=== PATIENT | female | born 1955 | race Caucasian/White ===

== ENCOUNTER 2023-12-20 13:56 | Outpatient (AMB) | payer BC, SELFPAY ==
--- NOTE | 2023-12-20 13:58 | MHC.PC.OV ---
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 Allergies erythromycin base Adverse Reaction (Intermediate, Verified 12/20/23 14:06) stomach pain bacitracin [From Triple Antibiotic] Adverse Reaction (Mild, Verified 12/20/23 14:06) Unknown neomycin [From Triple Antibiotic] Adverse Reaction (Mild, Verified 12/20/23 14:06) Unknown polymyxin B [From Triple Antibiotic] Adverse Reaction (Mild, Verified 12/20/23 14:06) Unknown metals Adverse Reaction (Intermediate, Uncoded 12/20/23 14:06) rash Tobacco use date assessed: 12/20/23 Dental Screening Dental Screen Date: 12/20/23 Did you have a dental visit in the last 12 months?: Yes Did you have a dental problem in the last 6 months where you did not have access to dental care?: No Was dental information given to patient?: Patient has dentist HPI HPI Comments History of Present Illness Details This is a 68-year-old female with a past medical history of mild intermittent asthma, hypertension, GERD, IBS and obesity presenting to transfer from my practice at [facility]. She went to [place] last week for 12 of December. She will be going back again in a few weeks. She does not have any major concerns. She mentions pain in the back of both ankles for a couple of weeks. She was wearing Tevas, and she noticed pain around the strap in the back. She started wearing sneakers again. She thinks it is helping. She does have a pain on the front of her right knee for a couple of days, but there was no trauma, swelling, redness. It is mild. Her knee does not lock or give out. No tick bites, but she spends a lot of time outside. Asthma has been quiet. She uses albuterol as needed. She has IBS and GERD. She takes lansoprazole and dicyclomine is taken as needed. She continues to decline colonoscopy. She denies blood in her stools, stool changes or unexplained weight loss. She denies family history of colon cancer. She does agree to Cologuard today. Patient said she had a mammogram done last year, and she is up-to-date. She declines referral for annual gynecologic exam. She is overdue. Hypertension is treated with amlodipine 7.5 mg daily. Her office reading today is elevated, but but her last home readings have been 120/80-81. ROS: Constitutional: No unexplained weight loss, fever, chills, fatigue or night sweats. Respiratory: No shortness of breath, cough or sputum production. Cardiovascular: No chest pain, chest pressure or chest discomfort. No palpitations or pedal edema. Neurologic: No headache, dizziness, syncope, unilateral weakness, ataxia, numbness or tingling in the extremities. Hematologic/Lymphatics: No bleeding or bruising. Skin: No rash Psychiatric: No depression or anxiety. Physical exam: Constitutional: Alert, in no distress. Eyes: Pupils are equal, round and reactive to light. Extraocular muscles intact. Neck: Supple, Full range of motion. No lymphadenopathy. No palpable thyroid masses. Respiratory: Clear to auscultation. Cardiovascular: S1 S2 regular. No murmurs. Neurologic: No focal neurological deficits. Musculoskeletal: Achilles tendons are nontender, no crepitus, no edema or erythema. Right knee nontender to palpation with full range of motion and normal gait. Extremities: Warm and well perfused. No edema. Psychiatric: Normal mood and affect [facility] Medical History (Updated 12/20/23 @ 15:58 by ZAY Barrera) Obesity (BMI 30.0-34.9) IBS (irritable bowel syndrome) Seasonal allergic rhinitis due to pollen Mild intermittent asthma in adult without complication Essential hypertension GERD without esophagitis Cold-induced asthma Seasonal allergies GERD (gastroesophageal reflux disease) Surgical History (Updated 12/20/23 @ 14:15 by Elidia Lamb CMA) S/P cholecystectomy Family History (Updated 12/20/23 @ 14:17 by Elidia Lamb CMA) Father Cardiovascular disease High blood pressure Stroke Social History Housing: House Patient Tobacco Use Status: Never used Tobacco e-Cigarette/Vaping Use: Never Used service: No Current occupational status: employed Cognitive needs: No Hearing needs: No Vision needs: Yes (Patient wears glasses.) Questionnaire PHQ-9 Over the last 2 weeks, how often have you been bothered by any of the following problems? 1. Little interest or pleasure in doing things: not at all 2. Feeling down, depressed, or hopeless: not at all 3. Trouble falling or staying asleep, or sleeping too much: not at all 4. Feeling tired or having little energy: not at all 5. Poor appetite or overeating: not at all 6. Feeling bad about yourself - or that you are a failure or have let yourself or your family down: not at all 7. Trouble concentrating on things, such as reading the newspaper or watching television: not at all 8. Moving or speaking so slowly that other people could have noticed. Or the opposite - being so fidgety or restless that you have been moving around a lot more than usual: not at all 9. Thoughts that you would be better off or of hurting yourself in some way: not at all Total score: 0 Depression Screening Interpretation: Negative Depression Screening Done: Yes Source: Developed by Drs. Dominik Patten, Emily Baron, Romeo Reddy and colleagues, with an educational kita from [employer]. Thrive Questionnaire Date Thrive assessed: 12/20/23 I am a: Patient What is your living situation today?: I have a steady place to live Within the past 12 months, did the food you bought not last and you didn't have the money to get more?: Never true Within the past 12 months, did you worry whether your food would run out before you got money to buy more?: Never true Do you have trouble paying for medicines?: No Do you have trouble getting transportation to medical appointments?: No Do you have trouble paying your heating and electricity bill?: No Do you have trouble taking care of your child, family member or friend?: No Do you have trouble with day-to-day activities such as bathing, preparing meals, shopping, managing finances, etc.?: No Are you currently unemployed and looking for a job?: No Are you interested in more education?: No THRIVE Score: 0 AUDIT C Alcohol Use Questionnaire (AUDIT-C) 1. How often do you have a drink containing alcohol?: Monthly or less 2. How many drinks containing alcohol do you have on a typical day when you are drinking?: 1 or 2 3. How often do you have six or more drinks on one occasion?: Never Total Score: 1 CHUCK-7 AMB Questionnaire CHUCK-7 Date CHUCK - 7 assessed: 12/20/23 Feeling nervous, anxious, or on edge: 0 = Not at all Not being able to stop or control worryin = Not at all Worrying too much about different things: 0 = Not at all Trouble relaxin = Not at all Being so restless that it is hard to sit still: 0 = Not at all Becoming easily annoyed or irritable: 0 = Not at all Feeling afraid as if something awful might happen: 0 = Not at all Total CHUCK-7 score (0-4 normal; 5-9 mild; 10-14 moderate; 15-21 severe): 0 Source: Developed by Drs. Dominik Patten, Emily Baron, Romeo Reddy and colleagues, with an educational kita from [employer]. Physical exam (Primary Care) Vital Signs: Last Vital Signs Pulse 69 12/20/23 14:00 BP 141/66 H 12/20/23 14:00 Pulse Ox 96 12/20/23 14:00 Oxygen Delivery Method Room Air 12/20/23 14:00 BMI result Body Mass Index 34.8 Tobacco/Smoking Status: Tobacco use Status Tobacco use date assessed 12/20/23 12/20/23 14:22 Patient Tobacco Use Status Never used Tobacco 12/20/23 14:22 e-Cigarette/Vaping Use Never Used 12/20/23 14:22 PHQ-9: PHQ-9 Score PHQ-9: Total score 0 12/20/23 14:22 Depression Screening Interpretation: Negative Thrive Assessment: Date of Thrive Assessment Date Thrive assessed 12/20/23 12/20/23 14:22 Assessment and Plan Assessment & Plan (1) Mild intermittent asthma in adult without complication: Code(s): J45.20 - Mild intermittent asthma, uncomplicated Plan: Continue albuterol 2 puffs every 4 hours as needed for coughing, wheezing and shortness of breath. (2) Essential hypertension: Code(s): I10 - Essential (primary) hypertension Plan: Controlled per home readings. Continue amlodipine 7.5 mg daily. (3) GERD without esophagitis: Code(s): K21.9 - Gastro-esophageal reflux disease without esophagitis Plan: Avoid trigger foods, weight loss encouraged. Continue lansoprazole. (4) Pain, joint, multiple sites: Code(s): M25.50 - Pain in unspecified joint Plan: She switched her footwear which I think is a good idea. Recommended ice and rest. We will check Lyme serology. Advised to monitor symptoms and return if they do not improve over the next 2-3 weeks or sooner for worsening symptoms. Plan Follow up in 6 months for physical exam. Orders: Orders Complete Blood Count no Diff Today I10 - Essential (primary) hypertension, M25.50 - Pain in unspecified joint, Z13.6 - Encounter for screening for cardiovascular disorders Lyme IgG/IgM w/reflex to WB Today M25.50 - Pain in unspecified joint Lipid Panel Today I10 - Essential (primary) hypertension, M25.50 - Pain in unspecified joint, Z13.6 - Encounter for screening for cardiovascular disorders Comprehensive Met. Panel Today I10 - Essential (primary) hypertension, M25.50 - Pain in unspecified joint, Z13.6 - Encounter for screening for cardiovascular disorders Referrals Cologuard Test Z12.11 - Encounter for screening for malignant neoplasm of colon, Z12.12 - Encounter for screening for malignant neoplasm of rectum Medications: New amlodipine 5 mg PO DAILY 90 tabs 3RF albuterol sulfate 90 mcg/actuation 2 puffs inhalation Q4H PRN 8.5 grams 0RF wheezing or shortness of breath amlodipine 2.5 mg PO DAILY 90 tabs 3RF lansoprazole 30 mg PO DAILY 90 caps 3RF fluconazole 150 mg PO Q3D 14 tabs 0RF Coding Level of Care Code Est Pt Level 4 (72216) Complex EM visit Add On G2211 Diagnoses Mild intermittent asthma in adult without complication J45.20 Essential hypertension I10 GERD without esophagitis K21.9 Pain, joint, multiple sites M25.50
[2023-12-20 14:00] VITALS: BP 141/66; PULSE 69; O2SAT 96; BMI 34.8
== END 2023-12-20 15:03 | disposition home or self-care (01) ==
PROVIDERS: PCP Physician Assistant Medical; Visit Provider Physician Assistant Medical
DX: J45.20 Mild intermittent asthma, uncomplicated (principal); I10 Essential (primary) hypertension; K21.9 Gastro-esophageal reflux disease without esophagitis; M25.50 Pain in unspecified joint
CPT/HCPCS: 99214

== ENCOUNTER 2024-04-17 15:17 | Outpatient (AMB) | payer BC, SELFPAY ==
--- NOTE | 2024-04-17 15:24 | A.OFFPC_ITS ---
Vital Signs 04/17/24 15:26 Height 5 ft 1 in Weight 186 lb BMI 35.1 BP 149/71 H Blood Pressure Location Lt brachial Position Sitting Respiration 14 Pulse 93 Pulse Source Pulse Oximeter Pulse Oximetry (%) 97 Oxygen Delivery Method Room Air Intake Visit Reasons: Cough follow-up Intake Note: follow up cough and sinus [employer] Required: No Allergies erythromycin base Adverse Reaction (Intermediate, Verified 04/17/24 15:26) stomach pain bacitracin [From Triple Antibiotic] Adverse Reaction (Mild, Verified 04/17/24 15:26) Unknown neomycin [From Triple Antibiotic] Adverse Reaction (Mild, Verified 04/17/24 15:26) Unknown polymyxin B [From Triple Antibiotic] Adverse Reaction (Mild, Verified 04/17/24 15:26) Unknown metals Adverse Reaction (Intermediate, Uncoded 12/20/23 14:06) rash Tobacco use date assessed: 12/20/23 Dental Screening Dental Screen Date: 12/20/23 HPI HPI Comments History of Present Illness Details This is a 68-year-old female with a past medical history of mild intermittent asthma, hypertension, GERD, IBS and obesity presenting for congestion. A few weeks ago she was sick with a cold and cough. She was wheezing, and she took her inhaler which helped. She also developed sinus congestion. She has been taking Sudafed, but this has not improve. She endorses sinus pressure that is worse on the left side, green nasal discharge, postnasal drip and left ear pain. No fevers or chills. No hearing loss. ROS: Constitutional: No fevers, chills or night sweats. Respiratory: No shortness of breath, hemoptysis or sputum production Cardiovascular: No chest pain Skin: No rash Physical exam: Constitutional: Alert, in no distress. Head: Normocephalic. Eyes: Pupils are equal, round and reactive to light. Extraocular muscles intact. Ear, Nose and Throat: The right tympanic membrane is normal. There is some brown cerumen in the right ear canal. The left tympanic membrane is erythematous and bulging. The nasal mucous is erythematous. The throat is cobblestoned. There is left maxillary sinus tenderness and frontal sinus tenderness. Neck: Supple, Full range of motion. No lymphadenopathy. Respiratory: Clear to auscultation. Cardiovascular: S1 S2 regular. No murmurs [facility] Medical History (Updated 12/20/23 @ 15:58 by ZAY Barrera) Obesity (BMI 30.0-34.9) IBS (irritable bowel syndrome) Seasonal allergic rhinitis due to pollen Mild intermittent asthma in adult without complication Essential hypertension GERD without esophagitis Cold-induced asthma Seasonal allergies GERD (gastroesophageal reflux disease) Surgical History (Updated 12/20/23 @ 14:15 by Elidia Lamb CMA) S/P cholecystectomy Family History (Updated 12/20/23 @ 14:17 by Elidia Lamb CMA) Father Cardiovascular disease High blood pressure Stroke Social History Housing: House Patient Tobacco Use Status: Never used Tobacco e-Cigarette/Vaping Use: Never Used service: No Current occupational status: employed Cognitive needs: No Hearing needs: No Vision needs: Yes (Patient wears glasses.) Questionnaire PHQ-9 Over the last 2 weeks, how often have you been bothered by any of the following problems? 2. Feeling down, depressed, or hopeless: not at all 58736 - PHQ-9 Billing: Patient declined-do not bill Source: Developed by Drs. Dominik Patten, Emily Baron, Romeo Reddy and colleagues, with an educational kita from [employer]. Thrive Questionnaire Date Thrive assessed: 04/17/24 I am a: Patient What is your living situation today?: I have a steady place to live Within the past 12 months, did the food you bought not last and you didn't have the money to get more?: I choose not to answer this question Within the past 12 months, did you worry whether your food would run out before you got money to buy more?: I choose not to answer this question Do you have trouble paying for medicines?: I choose not to answer this question Do you have trouble getting transportation to medical appointments?: I choose not to answer this question Do you have trouble paying your heating and electricity bill?: I choose not to answer this question Do you have trouble taking care of your child, family member or friend?: I choose not to answer this question Do you have trouble with day-to-day activities such as bathing, preparing meals, shopping, managing finances, etc.?: No Are you currently unemployed and looking for a job?: No Are you interested in more education?: No Please select the resources that you would like help with: None Currently or been in a relationship where the following occur: No concerns reported THRIVE Score: 0 AUDIT C Alcohol Use Questionnaire (AUDIT-C) 1. How often do you have a drink containing alcohol?: 4 or more times a week 2. How many drinks containing alcohol do you have on a typical day when you are drinking?: 1 or 2 3. How often do you have six or more drinks on one occasion?: Never Total Score: 4 CHUCK-7 AMB Questionnaire CHUCK-7 Date CHUCK - 7 assessed: 04/17/24 Feeling nervous, anxious, or on edge: 0 = Not at all Not being able to stop or control worryin = Not at all Worrying too much about different things: 0 = Not at all Trouble relaxin = Not at all Being so restless that it is hard to sit still: 0 = Not at all Becoming easily annoyed or irritable: 0 = Not at all Feeling afraid as if something awful might happen: 0 = Not at all Total CHUCK-7 score (0-4 normal; 5-9 mild; 10-14 moderate; 15-21 severe): 0 Source: Developed by Drs. Dominik Patten, Emily Baron, Romeo Reddy and colleagues, with an educational kita from [employer]. CHUCK-7 Assessment Billing CHUCK-7 Assessment Tool: CHUCK-7 Assessment 43904 Physical exam (Primary Care) Vital Signs: Last Vital Signs Pulse 93 04/17/24 15:26 Resp 14 04/17/24 15:26 BP 149/71 H 04/17/24 15:26 Pulse Ox 97 04/17/24 15:26 Oxygen Delivery Method Room Air 04/17/24 15:26 BMI result Body Mass Index 35.1 Tobacco/Smoking Status: Tobacco use Status Tobacco use date assessed 12/20/23 04/17/24 15:28 Patient Tobacco Use Status Never used Tobacco 04/17/24 15:28 e-Cigarette/Vaping Use Never Used 04/17/24 15:28 Thrive Assessment: Date of Thrive Assessment Date Thrive assessed 04/17/24 04/17/24 15:28 Currently or been in a relationship where the following occur: No concerns reported Coding Level of Care Code Est Pt Level 3 (10266) Complex EM visit Add On G2211 Diagnoses Left otitis media H66.92 Acute sinusitis J01.90 Additional Codes CHUCK-7 Assessment Billing - CHUCK-7 Assessment Tool: CHUCK-7 Assessment 51725 ([id number]) Assessment & Plan Assessment & Plan (1) Left otitis media: Code(s): H66.92 - Otitis media, unspecified, left ear (2) Acute sinusitis: Code(s): J01.90 - Acute sinusitis, unspecified Plan Recommended saline nasal spray, cool mist humidifier, increasing fluids. Take Augmentin as prescribed. Side effects and administration reviewed. She is prone to yeast infection so I sent the refill on her fluconazole and advance. Patient instructed to follow up if symptoms do not improve or worsen. Medications: New amoxicillin-pot clavulanate 875-125 mg 1 tab PO BID 10 days 20 tabs 0RF Refilled fluconazole 150 mg PO Q3D 14 tabs 0RF
[2024-04-17 15:26] VITALS: BP 149/71; PULSE 93; RESP 14; O2SAT 97; BMI 35.1
== END 2024-04-17 15:50 | disposition home or self-care (01) ==
LOC: HO.HMCFM 15:18
PROVIDERS: PCP Physician Assistant Medical; Visit Provider Physician Assistant Medical
DX: H66.92 Otitis media, unspecified, left ear (principal); J01.90 Acute sinusitis, unspecified

== ENCOUNTER → 2024-04-17 15:17 | Outpatient (BNVA) | payer BC, SELFPAY | PROVIDERS: PCP Physician Assistant Medical; Visit Provider Physician Assistant Medical | DX: H66.92 Otitis media, unspecified, left ear (principal); J01.90 Acute sinusitis, unspecified | CPT/HCPCS: 96127 ==

== ENCOUNTER 2024-04-25 09:13 | Outpatient (REF) | payer BC, SELFPAY ==
[2024-04-25 11:21] LABS: Hematocrit 43.9 % (37.0-47.0); Hemoglobin 14.7 g/dl (12.0-16.0); Mean Corpuscular HGB Conc 33.5 g/dl (31.0-35.0); Mean Corpuscular Hemoglobin 29.9 pg (27.0-33.0); Mean Corpuscular Volume 89.4 fL (80.0-98.0); Mean Platelet Volume 9.6 fL (9.4-12.3); Platelet Count 464 X10*3/uL (160-400); Red Blood Count 4.91 X10*6/uL (4.20-5.50); Red Cell Distribution Width 13.2 % (11.0-16.0); White Blood Count 8.1 X10*3/uL (4.8-10.8)
[2024-04-25 11:47] LABS: Alanine Aminotransferase 38 U/L (0-31); Albumin Level 4.1 g/dL (3.5-5.0); Alkaline Phosphatase 86 U/L (39-117); Anion Gap 12 (12-20); Aspartate Amino Transferase 32 U/L (5-31); Bilirubin Total 0.4 mg/dL (0.0-1.0); Blood Urea Nitrogen 11 mg/dL (9-16); Calcium 9.6 mg/dL (8.4-10.2); Carbon Dioxide 26 mmol/L (22-29); Chloride 105 mmol/L (96-108); Cholesterol 193 mg/dL (<200); Estimated Glomerular Filt Rate > 60; Glucose Random 92 mg/dL (60-115); HDL Cholesterol 43 mg/dL (>40); LDL Cholesterol Calculated 131 mg/dL (<100); Potassium 4.1 mmol/L (3.3-5.1); Sodium 139 mmol/L (135-145); Total Protein 7.5 g/dL (6.5-8.0); Triglycerides 98 mg/dL (<150)
[2024-04-28 18:03] LABS: Lyme Abs Screen <0.90 index
== END 2024-04-25 09:14 | disposition home or self-care (01) ==
LOC: HO.WFDLDS 09:13
PROVIDERS: Visit Provider Physician Assistant Medical
DX: M25.50 Pain in unspecified joint (principal); I10 Essential (primary) hypertension; Z13.6 Encounter for screening for cardiovascular disorders
CPT/HCPCS: 36415; 80053; 80061; 85027; 86617; 86618

== ENCOUNTER 2024-06-26 11:42 | Outpatient (REF) | payer BC, SELFPAY ==
[2024-06-26 14:01] LABS: MANUAL DIFF FLAG NO
[2024-06-26 14:09] LABS: Basophils Absolute Auto 0.1 X10*3/uL (0.0-0.2); Basophils Percent Auto 0.7 % (0-2); Eosinophils Absolute Auto 0.3 X10*3/uL (0.0-0.4); Hematocrit 43.5 % (37.0-47.0); Hemoglobin 14.5 g/dl (12.0-16.0); Imm Gran Abs Auto 0.02 X10*3/uL (0.00-0.03); Imm Gran Pct Auto 0.2 % (0.0-0.4); Lymphocytes Percent Auto 24.2 % (20-40); Mean Corpuscular HGB Conc 33.3 g/dl (31.0-35.0); Mean Corpuscular Hemoglobin 29.8 pg (27.0-33.0); Mean Corpuscular Volume 89.3 fL (80.0-98.0); Mean Platelet Volume 10.1 fL (9.4-12.3); Monocytes Absolute Auto 0.9 X10*3/uL (0.1-1.2); Monocytes Percent Auto 11.3 % (2-11); Neutrophils Absolute Auto 4.8 x10*3/uL (2.0-8.3); Neutrophils Percent Auto 59.6 % (45-73); Platelet Count 424 X10*3/uL (160-400); Red Blood Count 4.87 X10*6/uL (4.20-5.50); Red Cell Distribution Width 13.4 % (11.0-16.0); White Blood Count 8.1 X10*3/uL (4.8-10.8)
[2024-06-26 14:17] LABS: Alanine Aminotransferase 30 U/L (0-31); Aspartate Amino Transferase 25 U/L (5-31)
== END 2024-06-26 11:43 | disposition home or self-care (01) ==
LOC: HO.WFDLDS 11:42
PROVIDERS: Visit Provider Physician Assistant Medical
DX: E78.5 Hyperlipidemia, unspecified (principal); R79.89 Other specified abnormal findings of blood chemistry
CPT/HCPCS: 36415; 84450; 84460; 85025

== ENCOUNTER 2024-07-10 10:55 | Outpatient (AMB) | payer BC, SELFPAY ==
--- NOTE | 2024-07-10 11:03 | MHC.PC.OV ---
Vital Signs 07/10/24 11:06 07/10/24 17:30 Height 5 ft 1 in Weight 186 lb BMI 35.1 BP 155/75 H 135/72 Blood Pressure Location Lt brachial Position Sitting Respiration 13 Pulse 79 Pulse Source Pulse Oximeter Temp 96.3 F L Temp Source Temporal Artery Scan Pulse Oximetry (%) 97 Oxygen Delivery Method Room Air Intake Visit Reasons: PE Intake Note: annual physical Process Chemist Required: No Allergies erythromycin base Adverse Reaction (Intermediate, Verified 07/10/24 11:04) stomach pain bacitracin [From Triple Antibiotic] Adverse Reaction (Mild, Verified 07/10/24 11:04) Unknown neomycin [From Triple Antibiotic] Adverse Reaction (Mild, Verified 07/10/24 11:04) Unknown polymyxin B [From Triple Antibiotic] Adverse Reaction (Mild, Verified 07/10/24 11:04) Unknown metals Adverse Reaction (Intermediate, Uncoded 12/20/23 14:06) rash Medication List - Last Reconciled 07/10/24 by ZAY Barrera albuterol sulfate 90 mcg/actuation 2 puffs inhalation Q4H PRN amlodipine 5 mg PO DAILY amlodipine 2.5 mg PO DAILY dicyclomine 10 mg PO BID fexofenadine (Edel Allergy) 180 mg PO DAILY fluconazole 150 mg PO Q3D 2 doses lansoprazole 30 mg PO DAILY Tobacco use date assessed: 07/10/24 Fall risk assessment: No Falls in past year Last assessed Fall Risk: 07/10/24 Dental Screening Dental Screen Date: 12/20/23 HPI HPI Comments History of Present Illness Details This is a 68-year-old female with a past medical history of mild intermittent asthma, hypertension, GERD, IBS and obesity presenting for follow up. We reviewed her lab work which shows persistent thrombocytosis however platelets did decrease from 464,000 to 424,000. No anemia. White blood cell count and differential normal aside from mildly increased monocyte percentage. She continues to deny constitutional symptoms including fatigue, night sweats, fevers, chills, easy bruising or bleeding. Denies history of clots. She has no known history of autoimmune disease. No recent infections. She was referred to Hematology, and she has an appointment in July. Asthma has been quiet. She uses albuterol as needed. She has IBS and GERD. She takes lansoprazole and dicyclomine is taken as needed. She continues to decline colonoscopy. She denies blood in her stools, stool changes or unexplained weight loss. She denies family history of colon cancer. She had Cologuard completed which was negative. Patient says she will have mammogram and bone density ordered when she returns from [place], but she did not want orders placed today. She does not want to have them done until well after flu season. She has declined referral for annual gynecologic exam. She is overdue. She endorses intermittent pain on the outside of her left hip after going up and downstairs and exercising for the past couple of weeks. It is not affecting ADLs. She is still walking for exercise. No numbness, tingling or weakness. No trauma. It is tender if she lays on the left side or presses on the left hip on the outside. Patient would also like to be referred to Dermatology. Two months ago she noticed a scaly lesion on the left side of her face. It has not changed at all since she noticed it. It does not bleed or bother her. She has no history of skin cancer. Hypertension is treated with amlodipine 7.5 mg daily. Systolic BP mildly elevated today. She says her systolic BP at home is 120-130 generally. ROS: Constitutional: No unexplained weight loss, fever, chills, fatigue or night sweats. Eyes: No vision changes, blurry vision, double vision, eye pain Respiratory: No shortness of breath, cough or sputum production. Cardiovascular: No chest pain, chest pressure or chest discomfort. No palpitations or pedal edema. Gastrointestinal: No anorexia, nausea, vomiting or diarrhea. No abdominal pain or blood in stool. Neurologic: No headache, dizziness, syncope, unilateral weakness, ataxia, numbness or tingling in the extremities. Musculoskeletal: See HPI Hematologic/Lymphatics: No bleeding or bruising. No painful lymph nodes. Skin: See HPI Physical exam: Constitutional: Alert, in no distress. Eyes: Pupils are equal, round and reactive to light. Extraocular muscles intact. Neck: Supple, Full range of motion. No lymphadenopathy. No palpable thyroid masses. Respiratory: Clear to auscultation. Cardiovascular: S1 S2 regular. No murmurs. Neurologic: No focal neurological deficits. Skin: No ecchymosis or petechiae. There is a light brown scaly rough lesion on the left side of the face that is about the size of a pencil eraser. Musculoskeletal: No gross deformities. There is mild tenderness over the trochanteric bursa of the left hip. She has full range of motion of the hips. Lower extremity strength is 5/5 bilaterally. Extremities: Warm and well perfused. No clubbing, cyanosis or edema. Psychiatric: Normal mood and affect [facility], [facility] Medical History (Updated 07/11/24 @ 08:29 by ZAY Barrera) Skin lesion Left hip pain Elevated platelet count Elevated LFTs Obesity (BMI 30.0-34.9) IBS (irritable bowel syndrome) Seasonal allergic rhinitis due to pollen Mild intermittent asthma in adult without complication Essential hypertension GERD without esophagitis Cold-induced asthma Seasonal allergies GERD (gastroesophageal reflux disease) Surgical History (Updated 12/20/23 @ 14:15 by Elidia Lamb CMA) S/P cholecystectomy Family History (Updated 12/20/23 @ 14:17 by Elidia Lamb CMA) Father Cardiovascular disease High blood pressure Stroke Social History Housing: House Patient Tobacco Use Status: Never used Tobacco e-Cigarette/Vaping Use: Never Used service: No Current occupational status: employed Cognitive needs: No Hearing needs: No Vision needs: Yes (Patient wears glasses.) Questionnaire PHQ-9 Over the last 2 weeks, how often have you been bothered by any of the following problems? 39746 - PHQ-9 Billing: Patient declined-do not bill Source: Developed by Drs. Dominik Patten, Emily Baron, Romeo Reddy and colleagues, with an educational kita from [employer]. Thrive Questionnaire Date Thrive assessed: 07/10/24 I am a: Patient What is your living situation today?: I have a steady place to live Within the past 12 months, did the food you bought not last and you didn't have the money to get more?: Never true Within the past 12 months, did you worry whether your food would run out before you got money to buy more?: Never true Do you have trouble paying for medicines?: No Do you have trouble getting transportation to medical appointments?: No Do you have trouble paying your heating and electricity bill?: I choose not to answer this question Do you have trouble taking care of your child, family member or friend?: I choose not to answer this question Do you have trouble with day-to-day activities such as bathing, preparing meals, shopping, managing finances, etc.?: I choose not to answer this question Are you currently unemployed and looking for a job?: No Are you interested in more education?: No Please select the resources that you would like help with: None Currently or been in a relationship where the following occur: No concerns reported THRIVE Score: 0 CHUCK-7 AMB Questionnaire CHUCK-7 Date CHUCK - 7 assessed: 04/17/24 Source: Developed by Drs. Dominik Patten, Emily Baron, Romeo Reddy and colleagues, with an educational kita from [employer]. Physical exam (Primary Care) Vital Signs: Last Vital Signs Temp 96.3 F L 07/10/24 11:06 Pulse 79 07/10/24 11:06 Resp 13 07/10/24 11:06 BP 135/72 07/10/24 17:30 Pulse Ox 97 07/10/24 11:06 Oxygen Delivery Method Room Air 07/10/24 11:06 BMI result Body Mass Index 35.1 Tobacco/Smoking Status: Tobacco use Status Tobacco use date assessed 07/10/24 07/10/24 11:09 Patient Tobacco Use Status Never used Tobacco 07/10/24 11:09 e-Cigarette/Vaping Use Never Used 07/10/24 11:09 Thrive Assessment: Date of Thrive Assessment Date Thrive assessed 07/10/24 07/10/24 11:09 Currently or been in a relationship where the following occur: No concerns reported Coding Level of Care Code Est Pt Level 4 (67743) Complex EM visit Add On G2211 Diagnoses Elevated platelet count R79.89 Essential hypertension I10 GERD without esophagitis K21.9 IBS (irritable bowel syndrome) K58.9 Mild intermittent asthma in adult without complication J45.20 Left hip pain M25.552 Skin lesion L98.9 Assessment & Plan Assessment & Plan (1) Elevated platelet count: Code(s): R79.89 - Other specified abnormal findings of blood chemistry Category: Medical Plan: Reviewed differential with the patient. We had also messaged over the portal about this. She has an appointment in July with Hematology for further evaluation. (2) Essential hypertension: Code(s): I10 - Essential (primary) hypertension Category: Medical Plan: Patient will bring her cuff to the next appointment to compare to our reading in office. Patient says systolic blood pressure is normal at home. She does get anxious at office visits. Continue amlodipine 7.5 mg daily for now. Recommended low-sodium diet and avoidance of caffeine. Regular exercise recommended. (3) GERD without esophagitis: Code(s): K21.9 - Gastro-esophageal reflux disease without esophagitis Category: Medical Plan: Continue avoidance of spicy and acidic foods. Continue current regimen. (4) IBS (irritable bowel syndrome): Code(s): K58.9 - Irritable bowel syndrome, unspecified Category: Medical Plan: Lifestyle modifications reviewed. Takes dicyclomine as needed. (5) Mild intermittent asthma in adult without complication: Code(s): J45.20 - Mild intermittent asthma, uncomplicated Category: Medical Plan: Albuterol as needed for cough, wheezing and shortness of breath. She received the seasonal influenza vaccine. (6) Left hip pain: Code(s): M25.552 - Pain in left hip Category: Medical Plan: Exam and history consistent with trochanteric bursitis. She will start with conservative management. Recommended icing after activity. She can use Tylenol as needed for discomfort. Reviewed stretching. If symptoms become more persistent or worsen she was instructed to call for imaging orders and referral to PT. We also discussed she could see Orthopedics for possible cortisone injection. (7) Skin lesion: Code(s): L98.9 - Disorder of the skin and subcutaneous tissue, unspecified Category: Medical Plan: Reassuring that there is no change in this over the past 2 months. Patient instructed to call if it enlarges or appears differently to her. I will refer her to Dermatology for further evaluation. Patient was instructed to call the office if she does not hear about the referral in 2 weeks. Plan She will follow up with me in September. Orders: Referrals Dermatology Referral L98.9 - Disorder of the skin and subcutaneous tissue, unspecified Medications: Discontinued amoxicillin-pot clavulanate 875-125 mg Discontinued Reason: Doctor's Order 1 tab PO BID 10 days 20 tabs 0RF
[2024-07-10 11:06] VITALS: BP 155/75; PULSE 79; RESP 13; TEMP 35.7; O2SAT 97; BMI 35.1
[2024-07-10 17:30] VITALS: BP 135/72
== END 2024-07-10 12:04 | disposition home or self-care (01) ==
PROVIDERS: PCP Physician Assistant Medical; Visit Provider Physician Assistant Medical
DX: R79.89 Other specified abnormal findings of blood chemistry (principal); I10 Essential (primary) hypertension; K21.9 Gastro-esophageal reflux disease without esophagitis; K58.9 Irritable bowel syndrome, unspecified; J45.20 Mild intermittent asthma, uncomplicated; M25.552 Pain in left hip; L98.9 Disorder of the skin and subcutaneous tissue, unspecified

== ENCOUNTER → 2024-07-10 10:55 | Outpatient (BNVA) | payer BC, SELFPAY | PROVIDERS: PCP Physician Assistant Medical; Visit Provider Physician Assistant Medical ==

== ENCOUNTER → 2024-07-23 14:56 | Outpatient (BNV) | payer BC, SELFPAY | PROVIDERS: Visit Provider Nurse Practitioner Family | DX: D75.839 Thrombocytosis, unspecified (principal) | CPT/HCPCS: 99214 ==

== ENCOUNTER 2024-09-18 14:52 | Outpatient (AMB) | payer BC, SELFPAY ==
--- NOTE | 2024-09-18 14:55 | A.OFFPC_ITS ---
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 Is last menstrual period known: No Post menopausal: No Patient : No Allergies erythromycin base Adverse Reaction (Intermediate, Verified 09/18/24 14:58) stomach pain bacitracin [From Triple Antibiotic] Adverse Reaction (Mild, Verified 09/18/24 14:58) Unknown neomycin [From Triple Antibiotic] Adverse Reaction (Mild, Verified 09/18/24 14:58) Unknown polymyxin B [From Triple Antibiotic] Adverse Reaction (Mild, Verified 09/18/24 14:58) Unknown metals Adverse Reaction (Intermediate, Uncoded 07/23/24 15:09) rash Tobacco use date assessed: 09/18/24 Fall risk assessment: No Falls in past year Last assessed Fall Risk: 09/18/24 Dental Screening Dental Screen Date: 09/18/24 Did you have a dental visit in the last 12 months?: Yes Did you have a dental problem in the last 6 months where you did not have access to dental care?: No Was dental information given to patient?: Patient has dentist HPI HPI Comments History of Present Illness Details This is a 68-year-old female with a past medical history of mild intermittent asthma, hypertension, GERD, IBS and obesity presenting for follow up. She saw hematology for evaluation of thrombocytosis. Her platelet count normal ized, and this was thought to be reactive. Asthma has been quiet. She uses albuterol as needed. She has IBS and GERD. She takes lansoprazole and dicyclomine is taken as needed. She continues to decline colonoscopy. She denies blood in her stools, stool changes or unexplained weight loss. She denies family history of colon cancer. She had Cologuard completed which was negative. She is agreeable to having mammogram and bone density test done. The orders will be faxed to [facility].. She saw dermatology this morning, and they froze the skin lesion on the left cheek and right whitt. Hypertension is treated with amlodipine 7.5 mg daily. BP 142/88. ROS: Constitutional: No unexplained weight loss, fever, chills, fatigue or night sweats. Eyes: No vision changes, blurry vision, double vision, eye pain Respiratory: No shortness of breath Cardiovascular: No chest pain Neurologic: No headache, dizziness, syncope Hematologic/Lymphatics: No bleeding or bruising. No painful lymph nodes. Skin: See HPI Physical exam: Constitutional: Alert, in no distress. Respiratory: Clear to auscultation. Cardiovascular: S1 S2 regular. No murmurs. Neurologic: No focal neurological deficits. Extremities: Warm and well perfused. No clubbing, cyanosis or edema. Psychiatric: Normal mood and affect PENDING SALE TO [facility] Medical History (Updated 08/01/24 @ 09:23 by Mitzi Martin NP) Skin lesion Left hip pain Elevated platelet count Elevated LFTs Obesity (BMI 30.0-34.9) IBS (irritable bowel syndrome) Seasonal allergic rhinitis due to pollen Mild intermittent asthma in adult without complication Essential hypertension GERD without esophagitis Cold-induced asthma Seasonal allergies GERD (gastroesophageal reflux disease) Surgical History (Updated 07/23/24 @ 16:20 by Mitzi Martin NP) S/P cholecystectomy Family History Father Cardiovascular disease High blood pressure Stroke Social History (Updated 07/23/24 @ 15:12 by Alka Plunkett) Household Members: Spouse Housing: House Patient Tobacco Use Status: Never used Tobacco e-Cigarette/Vaping Use: Never Used Second Hand Smoke Exposure: No service: No Cognitive needs: No Hearing needs: No Vision needs: Yes (Patient wears glasses.) Questionnaire Thrive Questionnaire Date Thrive assessed: 06/19/24 I am a: Patient What is your living situation today?: I have a steady place to live Within the past 12 months, did the food you bought not last and you didn't have the money to get more?: Never true Within the past 12 months, did you worry whether your food would run out before you got money to buy more?: Never true Do you have trouble paying for medicines?: No Do you have trouble getting transportation to medical appointments?: No Do you have trouble paying your heating and electricity bill?: I choose not to answer this question Do you have trouble taking care of your child, family member or friend?: I choose not to answer this question Do you have trouble with day-to-day activities such as bathing, preparing meals, shopping, managing finances, etc.?: I choose not to answer this question Are you currently unemployed and looking for a job?: No Are you interested in more education?: No Please select the resources that you would like help with: None Currently or been in a relationship where the following occur: No concerns reported THRIVE Score: 0 CHUCK-7 AMB Questionnaire CHUCK-7 Date CHUCK - 7 assessed: 04/17/24 Source: Developed by Drs. Dominik Patten, Emily Baron, Romeo Reddy and colleagues, with an educational kita from [employer]. Physical exam (Primary Care) Vital Signs: Last Vital Signs Temp 97.6 F 09/18/24 14:59 Pulse 69 09/18/24 14:59 Resp 16 09/18/24 14:59 BP 148/82 H 09/18/24 14:59 Pulse Ox 98 09/18/24 14:59 Oxygen Delivery Method Room Air 09/18/24 14:59 BMI result Body Mass Index 35.0 Tobacco/Smoking Status: Tobacco use Status Tobacco use date assessed 09/18/24 09/18/24 15:04 Patient Tobacco Use Status Never used Tobacco 09/18/24 15:04 e-Cigarette/Vaping Use Never Used 09/18/24 15:04 Thrive Assessment: Date of Thrive Assessment Date Thrive assessed 06/19/24 09/18/24 15:04 Currently or been in a relationship where the following occur: No concerns reported Coding Level of Care Code Est Pt Level 4 (33978) Complex EM visit Add On G2211 Diagnoses Essential hypertension I10 Thrombocytosis D75.839 Skin lesion L98.9 Assessment & Plan Assessment & Plan (1) Essential hypertension: Code(s): I10 - Essential (primary) hypertension Category: Medical Plan: Increase amlodipine to 10 mg daily. Decrease sodium. Avoid caffeine. Increase exercise. She will send readings over the portal in 4-6 weeks and follow up in 3 months for re-evaluation. (2) Thrombocytosis: Code(s): D75.839 - Thrombocytosis, unspecified Category: Medical Plan: Seen by Hematology. Platelet count normalized. We can continue to monitor this on routine labs. (3) Skin lesion: Code(s): L98.9 - Disorder of the skin and subcutaneous tissue, unspecified Category: Medical Plan: S/p cryotherapy with Dermatology. She will return in December for a full-body skin exam. Plan Follow up in 3 months. Orders: Orders MM screening mammo BI Today Z12.31 - Encounter for screening mammogram for malignant neoplasm of breast XR DEXA axial skeleton Today N95.1 - Menopausal and female climacteric states Medications: New amlodipine 10 mg PO DAILY 90 tabs 1RF Refilled lansoprazole 30 mg PO DAILY 90 caps 3RF Discontinued amlodipine Discontinued Reason: Doctor's Order 5 mg PO DAILY 90 tabs 3RF amlodipine Discontinued Reason: Doctor's Order 2.5 mg PO DAILY 90 tabs 3RF
[2024-09-18 14:59] VITALS: BP 148/82; PULSE 69; RESP 16; TEMP 36.4; O2SAT 98; BMI 35.0
[2024-09-18 15:30] VITALS: BP 142/88
== END 2024-09-18 15:36 | disposition home or self-care (01) ==
LOC: HO.HMCFM 14:53
PROVIDERS: PCP Physician Assistant Medical; Visit Provider Physician Assistant Medical
DX: I10 Essential (primary) hypertension (principal); D75.839 Thrombocytosis, unspecified; L98.9 Disorder of the skin and subcutaneous tissue, unspecified